=== PATIENT | female | born 1980 | race African-American/Black ===

== ENCOUNTER 2021-09-27 23:50 | Emergency (ER) | payer OTHER ==
[2021-09-28 00:57] VITALS: BP 145/82; PULSE 72; TEMP 98.2; BMI 28.7
[2021-09-28] MEDS ORDERED: ACETAMINOPHEN 500 MG TABLET (FP) PO ONE (02:08)
[2021-09-28] MEDS ORDERED: LIDOCAINE 5% TOPICAL PATCH TP ONE (02:08)
[2021-09-28] MEDS ORDERED: ACETAMINOPHEN 325 MG TABLET (FP) ONE (02:28)
[2021-09-28] MEDS ORDERED: LIDOCAINE 5% TOPICAL PATCH ONE (02:29)
[2021-09-28] MEDS ORDERED: LIDOCAINE PATCH REMOVAL MC SCH (22:00)
== END 2021-09-28 03:17 | disposition home or self-care (01) ==
LOC: JER 23:50
DX: G43.909 Migraine, unspecified, not intractable, without status migrainosus (principal)
CPT/HCPCS: 99283-25